=== PATIENT | female | born 1940 ===

== ENCOUNTER → 2020-08-01 11:28 | Outpatient (CLI) | payer MEDICARE, SELFPAY ==
[2020-08-01 19:46] LABS: TSH w/ Reflex to FT4 1.93 uIU/mL (0.47-4.68)
== END ==
PROVIDERS: PCP Physician Assistant Medical; Visit Provider Physician Assistant Medical
DX: E05.90 Thyrotoxicosis, unspecified without thyrotoxic crisis or storm (principal)
CPT/HCPCS: 84443

== ENCOUNTER → 2020-08-22 10:44 | Outpatient (CLI) | payer MEDICARE, SELFPAY ==
[2020-08-22 20:28] LABS: Alanine Aminotransferase 16 IU/L (<35); Albumin Globulin Ratio 1.2 (1.0-2.8); Alkaline Phosphatase 115 U/L (38-126); Aspartate Aminotransferase 29 IU/L (14-36); BUN Creatinine Ratio 29.5 (6-22); Bilirubin Total 0.4 mg/dL (0.2-1.3); Blood Urea Nitrogen 31 mg/dL (7-17); Calcium 9.8 mg/dL (8.4-10.2); Carbon Dioxide 27 mmol/L (22-32); Chloride 104 mmol/L (98-107); Estimated Glomerular Filt Rate 50.3 mL/min (>60); Globulin 3.3 g/dL (1.7-4.1); Glucose 102 mg/dL (80-110); HEMOLYSIS < 15 (0-50); Potassium 4.8 mmol/L (3.4-5.1); Sodium 140 mmol/L (137-145); Total Protein 7.3 g/dL (6.3-8.2)
[2020-08-22 20:35] LABS: Free T4, Direct Thyroxine 1.16 ng/dL (0.78-2.19)
== END ==
PROVIDERS: PCP Physician Assistant Medical
DX: E06.3 Autoimmune thyroiditis (principal); E03.9 Hypothyroidism, unspecified
CPT/HCPCS: 80053; 84439

== ENCOUNTER → 2021-08-02 13:02 | Outpatient (CLI) | payer MEDICARE, SELFPAY ==
[2021-08-04 15:19] LABS: Free T4, Direct Thyroxine 1.46 ng/dL (0.78-2.19)
[2021-08-04 15:32] LABS: Thyroid Stimulating Hormone 1.14 uIU/mL (0.47-4.68)
== END ==
PROVIDERS: PCP Physician Assistant Medical
DX: E05.90 Thyrotoxicosis, unspecified without thyrotoxic crisis or storm (principal)
CPT/HCPCS: 84439; 84443